=== PATIENT | female | born 1995 | race Caucasian/White ===

== ENCOUNTER 2017-02-05 12:38 | Emergency (ER) | payer OTHER ==
[~2017-02-05] VITALS: Ht 160 cm; Wt 77.7 kg
[2017-02-05 13:19] LABS: ADD MIUA? YES; BILIRUBIN NEGATIVE; BLOOD LARGE; COLOR YELLOW ((YELLOW)); GLUCOSE (STRIP) NEGATIVE; KETONES NEGATIVE; LEUKOCYTES SMALL; NITRITE NEGATIVE; PROTEIN (STRIP) 30; SPECIFIC GRAVITY 1.023 (1.000-1.030); UROBILINOGEN 0.2 MG/DL (0.2-1.0)
[2017-02-05 13:34] LABS: BACTERIA NONE SEEN /HPF; EPITHELIAL CELLS RARE /HPF; MUCUS NONE SEEN /LPF; RED BLOOD CELLS TNTC /HPF (0-5); UCUL ADDED? YES; WHITE BLOOD CELLS 0-5 /HPF (0-5)
[2017-02-05 15:11] LABS: HEMATOCRIT 44.5 % (36.0-46.0); MCH 29.4 PG (29.0-34.0); MCHC 33.7 G/DL (30.0-36.0); MCV 87.1 FL (83-99); MEAN PLAT.VOLUME 10.9 uM^3 (9.5-12.4); PLATELET COUNT 270 K/uL (156-360); RBC DIS.WIDTH-CV 12.5 % (11.8-14.6); RBC DIS.WIDTH-SD 39.7 % (39-53); RED BLOOD COUNT 5.11 M/uL (3.80-5.20); WHITE BLOOD COUNT 13.5 K/uL (4.1-10.2)
[2017-02-05 15:21] LABS: CHLORIDE 108 mEq/L (99-109); POTASSIUM 4.3 mEq/L (3.7-5.4); SODIUM 138 mEq/L (136-147)
[2017-02-05 15:23] LABS: GLUCOSE 109 mg/dL (70-99)
[2017-02-05 15:24] LABS: ANION GAP 7 MEQ/L (2-14)
[2017-02-05 15:27] LABS: GFR ESTIMATE (CALCULATED) > 59 mL/min/; UREA NITROGEN (BUN) 13 mg/dL (9-23)
[2017-02-05 15:32] LABS: QUANTITATIVE HCG < 4.0 MIU/ML
[2017-02-05] MEDS ORDERED: LORTAB 5-325 M1 EACH PO (17:08)
[2017-02-05] MEDS ORDERED: ZOFRAN ODT4 MG PO (17:08)
[2017-02-05] MEDS ORDERED: NAPROSYN500 MG PO (17:08)
[2017-02-05] MEDS ORDERED: FLOMAX0.4 MG PO (17:08)
[2017-02-05] MEDS ORDERED: MACROBID100 MG PO (17:10)
[2017-02-05 17:30] VITALS: BP 106/55
== END 2017-02-05 17:32 | disposition home or self-care (01) ==
LOC: EME 12:38
DX: N13.2 Hydronephrosis with renal and ureteral calculous obstruction (principal); N39.0 Urinary tract infection, site not specified; R11.0 Nausea; Z88.0 Allergy status to penicillin
CPT/HCPCS: 74176; 80048; 81003; 84702; 85027; 87086; 99281; 99285; J1885